=== PATIENT | male | born 1940 | race Native Hawaiian/Other Pacific Islander ===

== ENCOUNTER 2018-03-05 06:29 | Inpatient (IN) | payer MEDICARE ==
--- NOTE | 2018-03-05 07:16 | Emergency Department Report ---
HPI - General Chief Complaint: Dyspnea/Respdistress Time Seen by Provider: 03/05/18 06:58 - HPI HPI: Room 23 The patient is a 77-year-old male presented with the chief complaint of hypoxia. The patient has a history of end-stage renal disease and was last dialyzed 2 days ago. The patient reportedly was on his way to dialysis via EMS when he reportedly was found to be hypotensive with a blood pressure 90/62 and hypoxic with an SPO2 of 72%. Patient states she is normally on 3 L nasal cannula at home. MS decided to bring the patient to the ED after the above vitals were noticed. Patient denied ever having any complaints states he just feels very relaxed and sleeping. Patient denies pain of any type Location: [See above] Duration: Hypoxia Quality: Hypoxia Severity: 72% Modifying factors: [see above] Context: [see above] Mode of transportation: [not driving] ED Past Medical Hx - Past Medical History Previous Medical History?: Yes Hx Congestive Heart Failure: Yes Hx Renal Disease: Yes Hx COPD: Yes - Surgical History Past Surgical History?: Yes Additional Surgical History: Left BKA, left upper extremity fistula - Family History Family history: no significant - Social History Smoking Status: Former Smoker Substance Use Type: None - Medications Home Medications: Home Medications Medication Instructions Recorded Confirmed Last Taken Type AtorvaSTATin [Lipitor] 80 mg PO QHS 03/05/18 03/05/18 Unknown History Docusate Sodium [Colace] 100 mg PO QDAY PRN 03/05/18 03/05/18 Unknown History Gabapentin [Neurontin] 100 mg PO BID 03/05/18 03/05/18 Unknown History HYDROcodone/ACETAMINOPHEN 1 each PO Q4H 03/05/18 03/05/18 Unknown History [Hydrocodon-Acetaminophn 10-325] Midodrine [Proamatine] 10 mg PO 4XW 03/05/18 03/05/18 Unknown History Midodrine [Proamatine] 15 mg PO 3XW 03/05/18 03/05/18 Unknown History Pantoprazole [Protonix] 40 mg PO QDAY 03/05/18 03/05/18 Unknown History Warfarin Sodium [Coumadin] 7.5 mg PO QDAY 03/05/18 03/05/18 Unknown History traMADol [Ultram] 50 mg PO Q6HR PRN 03/05/18 03/05/18 Unknown History ED Review of Systems ROS: Stated complaint: RESP DISTRESS Other details as noted in HPI Eyes: denies: eye pain ENT: denies: dental pain Respiratory: denies: shortness of breath Cardiovascular: denies: chest pain Gastrointestinal: denies: abdominal pain Genitourinary: denies: dysuria Musculoskeletal: denies: back pain Neurological: denies: headache Physical Exam - Physical Exam Vital Signs: Vital Signs 03/05/18 06:41 Temperature 98.0 F Pulse Rate 71 Respiratory 18 Rate Blood Pressure 112/72 O2 Sat by Pulse 100 Oximetry Physical Exam: GENERAL: The patient is well-developed well-nourished male lying on stretcher not appearing to be in acute distress. [] HEENT: Normocephalic. Atraumatic. Extraocular motions are intact. Patient has moist mucous membranes. NECK: Supple. Trachea midline CHEST/LUNGS: Clear to auscultation. There is no respiratory distress noted. HEART/CARDIOVASCULAR: Regular. There is no tachycardia. There is no gallop rub or murmur. ABDOMEN: Abdomen is soft, nontender. Patient has normal bowel sounds. There is no abdominal distention. SKIN: There is no rash. There is no edema. There is no diaphoresis. NEURO: The patient is awake, alert, and oriented. The patient is cooperative. The patient has normal speech MUSCULOSKELETAL: There is no evidence of acute injury. ED Course Vital Signs 03/05/18 06:41 Temperature 98.0 F Pulse Rate 71 Respiratory 18 Rate Blood Pressure 112/72 O2 Sat by Pulse 100 Oximetry - Consultations Consultation #1: 03/05/18 08:20 Nephrology paged 03/05/18 08:[address] Pisano. We'll arrange for hemodialysis. ED Medical Decision Making - Lab Data Result diagrams: 03/05/18 07:18 03/05/18 07:18 Laboratory Tests 03/05/18 03/05/18 07:18 07:18 WBC 6.4 RBC 4.34 Hgb 12.2 Hct 39.1 MCV 90 MCH 28 MCHC 31 L RDW 18.3 H Plt Count 113 L Lymph % (Auto) 13.6 Divide % (Auto) 8.8 H Eos % (Auto) 3.1 Baso % (Auto) 1.1 Lymph # 0.9 L Divide # 0.6 Eos # 0.2 Baso # 0.1 Seg Neutrophils % 73.4 H Seg Neutrophils # 4.7 Sodium 140 Potassium 3.3 L Chloride 93.2 L Carbon Dioxide 38 H Anion Gap 12 BUN 11 Creatinine 2.8 H Estimated GFR 22 BUN/Creatinine Ratio 4 Glucose 155 H Calcium 8.2 L Total Bilirubin 0.60 AST 15 ALT 10 Alkaline Phosphatase 238 H Total Protein 6.1 L Albumin 2.7 L Albumin/Globulin Ratio 0.8 - EKG Data -: EKG Interpreted by Me - EKG Data When compared to previous EKG there are: previous EKG unavailable Interpretation: other (ventricularly paced rhythm) - Radiology Data Radiology results: image reviewed (chest x-ray) interpreted by me: Chest x-ray-CHF. No pneumothorax - Differential Diagnosis volume overload, CHF, Critical care attestation.: If time is entered above; I have spent that time in minutes in the direct care of this critically ill patient, excluding procedure time. ED Disposition Clinical Impression: End stage renal disease, Hypoxia, Volume overload Disposition: DC-09 OP ADMIT IP TO THIS HOSP Is pt being admited?: Yes Does the pt Need Aspirin: Yes Condition: Fair Time of Disposition: 08:29 (hospitalist notified (Dr Casarez))
[2018-03-05 07:43] LABS: Basophils # (Auto) 0.1 K/mm3 (0.0-0.1); Basophils % (Auto) 1.1 % (0.0-1.8); Eosinophils # (Auto) 0.2 K/mm3 (0.0-0.4); Eosinophils % (Auto) 3.1 % (0.0-4.3); Hematocrit 39.1 % (35.5-45.6); Hemoglobin 12.2 gm/dl (11.8-15.2); Lymphocytes # (Auto) 0.9 K/mm3 (1.2-5.4); Lymphocytes % (Auto) 13.6 % (13.4-35.0); Mean Corpuscular HGB Conc 31 % (32-34); Mean Corpuscular Hemoglobin 28 pg (28-32); Mean Corpuscular Volume 90 fl (84-94); Monocytes # (Auto) 0.6 K/mm3 (0.0-0.8); Monocytes % (Auto) 8.8 % (0.0-7.3); Platelet Count 113 K/mm3 (140-440); Red Blood Count 4.34 M/mm3 (3.65-5.03); Red Cell Distribution Width 18.3 % (13.2-15.2)
[2018-03-05 07:54] LABS: Albumin 2.7 g/dL (3.9-5); Calcium 8.2 mg/dL (8.4-10.2)
--- NOTE | 2018-03-05 09:29 | Consultation ---
History of Present Illness - Reason for Consult Consult date: 03/05/18 end stage renal disease - History of Present Illness patient with h/o ESRD on HD, last treatment was 2 days ago, he came to the ER today for worsening SOB and weakness, he was found to be hypoxic and hypotensive by EMS. according to the he was also having diarrhea for the 2 weeks. renal consult was requested for HD and ESRD management. Past History Past Medical History: diabetes, ESRD, hypertension Medications and Allergies Allergies Allergy/AdvReac Type Severity Reaction Status Date / Time No Known Allergies Allergy Unverified 03/05/18 06:50 Home Medications Medication Instructions Recorded Confirmed Last Taken Type AtorvaSTATin [Lipitor] 80 mg PO QHS 03/05/18 03/05/18 Unknown History Docusate Sodium [Colace] 100 mg PO QDAY PRN 03/05/18 03/05/18 Unknown History Gabapentin [Neurontin] 100 mg PO BID 03/05/18 03/05/18 Unknown History HYDROcodone/ACETAMINOPHEN 1 each PO Q4H 03/05/18 03/05/18 Unknown History [Hydrocodon-Acetaminophn 10-325] Midodrine [Proamatine] 10 mg PO 4XW 03/05/18 03/05/18 Unknown History Midodrine [Proamatine] 15 mg PO 3XW 03/05/18 03/05/18 Unknown History Pantoprazole [Protonix] 40 mg PO QDAY 03/05/18 03/05/18 Unknown History Warfarin Sodium [Coumadin] 7.5 mg PO QDAY 03/05/18 03/05/18 Unknown History traMADol [Ultram] 50 mg PO Q6HR PRN 03/05/18 03/05/18 Unknown History Exam - Vital Signs Vital signs: Vital Signs Temp Pulse Resp BP Pulse Ox 98.0 F 71 18 112/72 100 03/05/18 06:41 03/05/18 06:41 03/05/18 06:41 03/05/18 06:41 03/05/18 06:41 - General Appearance General appearance: well-developed, well-nourished, appears stated age EENT: ATNC, PERRL, mucous membranes moist Neck: Present: neck supple Respiratory: Rales, Decreased Breath Sounds Heart: tachycardia, S1S2 Gastrointestinal: Present: normoactive bowel sounds, obese. Absent: tenderness , distended Integumentary: no rash, warm and dry Neurologic: no focal deficit, no asterixis, alert and oriented x3 Musculoskeletal: Present: other (edema in all ext) Psychiatric: mood/affect appropriate, cooperative Results - Lab Results 03/05/18 07:18 03/05/18 07:18 Most recent lab results Calcium 8.2 mg/dL (8.4-10.2) L 03/05/18 07:18 Assessment and Plan hypoxic resp failure - on face mask - no CXR done yet - HD ordered with ultrafiltration for volume overload ESRD on HD - HD for clearance and volume removal via L AVF - will assess dialysis needs daily, possible another tx tomorrow - renally dose meds - strict I&O - daily weights Hypotension - on midodrine at home, will restart please call with questions, cell phone [phone]
[2018-03-05] MEDS: PROAMATINE PO SCH ×2 (14:17→22:04)
--- NOTE | 2018-03-05 15:31 | History and Physical Report ---
History of Present Illness Date of examination: 03/05/18 Date of admission: 03/05/18 08:28 Chief complaint: SOB History of present illness: Mr. Hernandez is 77 yo man from home with a history of PVD s/p left bka, peripheral neuropathy, severe OA of shoulders, chronic hypoxic respiratory failure due to end stage COPD on 3 liters of home o2, CHF, ppm, dlp, chronic hypotension related to ESRD on midodrine and hemodialysis every MWF who presents to [facility] ED with sudden onset of acute severe, constant ALVARADO without aggravating or relieving factors, without radiating pains. He was found to have a bp of 90/82, o2 72%, placed on 100% NRB mask in route to hemodialysis. His main compliant is 2 week history of diarrhea which started after his hospitalization at [facility] after open cholecystectomy December 2017. He eventually went to [facility] in [place], [place] then was discharged home recently. PMH: as hpi, also on Warfarin, reason unknown PSH: left bka, open cholecystectomy, left upper arm fistula SH: ex smoker, no alcohol or illegal drug use, at bedside FH: hypertension and ESRD ROS: Constitutional: denies: fever ENT: denies: throat or neck pain Respiratory: denies: cough,+ shortness of breath Cardiovascular: denies: chest pain Endocrine: denies unexplained weight loss or gain Gastrointestinal: denies: abdominal pain, nausea +diarrhea Genitourinary: denies: dysuria Rectal: denies no incontinence, no bleeding, no itching, no discharge Musculoskeletal: denies swelling, myaglia, muscle weakness Skin: denies: rash Neurological: denies: headache Hematological/Lymphatic: denies: easy bleeding or easy bruising Allergic/Immunologic: no urticaria, no allergic rhinitis, no anaphylaxis Psych: denies sadness or hopelessness, SI/HI Past History Past Medical History: diabetes, ESRD, hypertension Medications and Allergies Allergies Allergy/AdvReac Type Severity Reaction Status Date / Time No Known Allergies Allergy Unverified 03/05/18 06:50 Home Medications Medication Instructions Recorded Confirmed Last Taken Type AtorvaSTATin [Lipitor] 80 mg PO QHS 03/05/18 03/05/18 Unknown History Docusate Sodium [Colace] 100 mg PO QDAY PRN 03/05/18 03/05/18 Unknown History Gabapentin [Neurontin] 100 mg PO BID 03/05/18 03/05/18 Unknown History HYDROcodone/ACETAMINOPHEN 1 each PO Q4H 03/05/18 03/05/18 Unknown History [Hydrocodon-Acetaminophn 10-325] Midodrine [Proamatine] 10 mg PO 4XW 03/05/18 03/05/18 Unknown History Midodrine [Proamatine] 15 mg PO 3XW 03/05/18 03/05/18 Unknown History Pantoprazole [Protonix] 40 mg PO QDAY 03/05/18 03/05/18 Unknown History Warfarin Sodium [Coumadin] 7.5 mg PO QDAY 03/05/18 03/05/18 Unknown History traMADol [Ultram] 50 mg PO Q6HR PRN 03/05/18 03/05/18 Unknown History Active Meds: Active Medications Midodrine (Proamatine) 10 mg PO TID RITESH Last Admin: 03/05/18 14:17 Dose: 10 mg Exam - Physical Exam Narrative exam: GEN: WDWN, ill appearing moderate increase accessory muscles with convo dyspnea , Awake, Alert, Orientated x 3 HEENT: NCAT, EOMI, PERRL, OP Clear NECK: supple, no adenopathy, no thyromegaly, = JVD CVS/HEART: irregular, normal S1S2, pulses present bilaterally, ppm left cw CHEST/LUNGS: bilateral crackles Symmetrical chest expansion, good air entry bilaterally GI/Abdomen: soft, NTND, good bowel sounds, no guarding or rebound /Bladder: no suprapubic tenderness, no CVA or paraspinal tenderness EXT/Skin: trace pretibial edema MSK: LROM of bilateral shoulders Neuro: CN 2-12 grossly intact, no new focal deficits Psych: calm - Constitutional Vitals: Temp Pulse Resp BP Pulse Ox 97.5 F L 65 16 107/45 97 03/05/18 13:45 03/05/18 15:00 03/05/18 13:45 03/05/18 15:00 03/05/18 13:45 Results - Labs CBC & Chem 7: 03/05/18 07:18 03/05/18 07:18 Labs: Abnormal lab results 03/05/18 03/05/18 03/05/18 Range/Units 07:18 07:18 11:56 MCHC 31 L (32-34) % RDW 18.3 H (13.2-15.2) % Plt Count 113 L (140-440) K/mm3 Nash % (Auto) 8.8 H (0.0-7.3) % Lymph # 0.9 L (1.2-5.4) K/mm3 Seg Neutrophils % 73.4 H (40.0-70.0) % Potassium 3.3 L (3.6-5.0) mmol/L Chloride 93.2 L (98-107) mmol/L Carbon Dioxide 38 H (22-30) mmol/L Creatinine 2.8 H (0.8-1.5) mg/dL Glucose 155 H (75-100) mg/dL POC Glucose 123 H (70-105) Calcium 8.2 L (8.4-10.2) mg/dL Alkaline Phosphatase 238 H (35-129) units/L Total Protein 6.1 L (6.3-8.2) g/dL Albumin 2.7 L (3.9-5) g/dL Assessment and Plan Mr. Hernandez is 77 yo man from home with a history of PVD s/p left bka, peripheral neuropathy, severe OA of shoulders, chronic hypoxic respiratory failure due to end stage COPD on 3 liters of home o2, CHF, ppm, dlp, chronic hypotension related to ESRD on midodrine and hemodialysis every MWF who presents to [facility] ED with sudden onset of acute severe, constant ALVARADO without aggravating or relieving factors, without radiating pains. He was found to have a bp of 90/82, o2 72%, placed on 100% NRB mask in route to hemodialysis. His main compliant is 2 week history of diarrhea which started after his hospitalization at [facility] after open cholecystectomy December 2017. He eventually went to [facility] in [place], [place] then was discharged home recently. On Warfarin most likely due to Afib/Aflutter which the current EKG shows heart rate 66, afib/aflutter and ventricular paced CXR CHF, reviewed in PACU with Dr. Pagan because CXR did not cross over into [facility] -Acute on chronic combined heart failure: treat with dialysis, he doesn't make urine, consult Cardiology -ESRD needing hemodialysis, he has been on HD for 13 years -Acute on chronic hypoxic respiratory failure due to chf: treat with O2 and hemodialysis -Chronic hypotension: continue Midodrine -Thrombocytopenia: repeat cbc -Hypokalemia: replete and repeat -Diarrhea, chronic: consult GI, get c.diffe -Severe malnutrition: consult Chief Recordist -Afib/Aflutter: continue Warfarin, get INR -DVT prophylaxis: Warfarin
[2018-03-05] MEDS ORDERED: ZOFRAN IV PRN (15:39)
[2018-03-05] MEDS ORDERED: TYLENOL PO PRN (15:39)
[2018-03-05] MEDS ORDERED: K-DUR PO NR (15:43)
[2018-03-05] MEDS ORDERED: K-DUR PO ONE (15:43)
[2018-03-05 18:18] LABS: INR 2.59 (0.87-1.13)
[2018-03-05] MEDS ORDERED: NACL 0.9% 1000 ML 2,000 ML ONE (18:28)
[2018-03-05] MEDS: PROTONIX PO SCH (18:34)
[2018-03-05] MEDS: COUMADIN PO SCH (22:00)
[2018-03-05] MEDS: NEURONTIN PO SCH (22:00)
[2018-03-06] MEDS: PROAMATINE PO SCH ×2 (06:36→08:43)
[2018-03-06 08:29] LABS: Calcium 8.4 mg/dL (8.4-10.2)
[2018-03-06 08:40] LABS: Basophils # (Auto) 0.1 K/mm3 (0.0-0.1); Basophils % (Auto) 1.4 % (0.0-1.8); Eosinophils # (Auto) 0.2 K/mm3 (0.0-0.4); Eosinophils % (Auto) 3.3 % (0.0-4.3); Hemoglobin 12.6 gm/dl (11.8-15.2); Lymphocytes # (Auto) 1.2 K/mm3 (1.2-5.4); Lymphocytes % (Auto) 18.6 % (13.4-35.0); Mean Corpuscular HGB Conc 32 % (32-34); Mean Corpuscular Hemoglobin 29 pg (28-32); Mean Corpuscular Volume 90 fl (84-94); Monocytes # (Auto) 0.5 K/mm3 (0.0-0.8); Monocytes % (Auto) 8.4 % (0.0-7.3); Platelet Count 124 K/mm3 (140-440); Red Blood Count 4.34 M/mm3 (3.65-5.03)
--- NOTE | 2018-03-06 10:41 | Progress Note ---
Assessment and Plan hypoxic resp failure - on face mask - HD ordered with ultrafiltration for volume overload again today ESRD on HD - HD for clearance and volume removal via L AVF again today - will assess dialysis needs daily - renally dose meds - strict I&O - daily weights Hypotension - on midodrine at home, will restart Chronic diarrhea - GI consulted please call with questions, cell phone [phone] Subjective Date of service: 03/06/18 Principal diagnosis: shortness of breath Interval history: tolerated HD well, SOB improved, remains to feel weak Objective - Vital Signs Vital signs: Vital Signs - 12hr 03/05/18 03/06/18 03/06/18 23:27 03:40 06:00 Temperature 98.1 F 98.1 F Pulse Rate 69 64 66 Respiratory 18 18 Rate Blood Pressure 83/43 72/35 Blood Pressure [Right] O2 Sat by Pulse 98 90 Oximetry 03/06/18 06:31 Temperature Pulse Rate Respiratory Rate Blood Pressure Blood Pressure 83/41 [Right] O2 Sat by Pulse Oximetry - General Appearance General appearance: well-developed, well-nourished, appears stated age EENT: ATNC, PERRL, mucous membranes dry Neck: no JVD, no carotid bruit Respiratory: Present: Rales, Decreased Breath Sounds Cardiology: regular, S1S2 Gastrointestinal: normoactive bowel sounds, no tenderness, no distended, obese Integumentary: no rash, warm and dry Neurologic: no focal deficit, no asterixis, alert and oriented x3 Musculoskeletal: other (edema in upper ext) Psychiatric: mood/affect appropriate, cooperative - Lab 03/06/18 07:36 03/06/18 07:36 Most recent lab results Calcium 8.4 mg/dL (8.4-10.2) 03/06/18 07:36 Phosphorus 1.50 mg/dL (2.5-4.5) L 03/06/18 07:36
[2018-03-06] MEDS: NEURONTIN PO SCH ×2 (11:00→22:50)
[2018-03-06] MEDS: PROTONIX PO SCH (11:00)
--- NOTE | 2018-03-06 14:43 | Progress Note ---
Assessment and Plan Assessment and plan: Mr. Hernandez is 77 yo man from home with a history of PVD s/p left bka, peripheral neuropathy, severe OA of shoulders, chronic hypoxic respiratory failure due to end stage COPD on 3 liters of home o2, CHF, ppm, dlp, chronic hypotension related to ESRD on midodrine and hemodialysis every MWF who presents to [facility] ED with sudden onset of acute severe, constant ALVARADO without aggravating or relieving factors, without radiating pains. He was found to have a bp of 90/82, o2 72%, placed on 100% NRB mask in route to hemodialysis. His main compliant is 2 week history of diarrhea which started after his hospitalization at [facility] after open cholecystectomy December 2017. He eventually went to [facility] in [place], [place] then was discharged home recently. On Warfarin most likely due to Afib/Aflutter which the current EKG shows heart rate 66, afib/aflutter and ventricular paced CXR CHF, reviewed in PACU with Dr. Pagan because CXR did not cross over into [facility] -Acute on chronic combined heart failure: treat with dialysis, he doesn't make urine, consult Cardiology -ESRD needing hemodialysis, he has been on HD for 13 years -Acute on chronic hypoxic respiratory failure due to chf: treat with O2 and hemodialysis -Chronic hypotension: continue Midodrine -Thrombocytopenia: repeat cbc -Hypokalemia: replete and repeat -Diarrhea, chronic: consult GI, get c.diffe==>no as diarrhea has resolved without eating, d/w gi, will treat with Questran -Severe malnutrition: consult Hand Booked Folder And Stitcher -Afib/Aflutter: continue Warfarin, get INR -DVT prophylaxis: Warfarin once fluid balance improves, will d/c home. Hemodialysis today also if bp allows History Interval history: Patient was seen and examined. Follow-up on current diagnosis. Overnight uneventful. Patient denies any chest pain, shortness breath, nausea/vomiting or severe headaches. Imaging, nursing note, chart, labs and old chart reviewed. Discussed with patient. Hospitalist Physical - Physical exam Narrative exam: GEN: WDWN, ill appearing moderate increase accessory muscles with convo dyspnea , Awake, Alert, Orientated x 3 HEENT: NCAT, EOMI, PERRL, OP Clear NECK: supple, no adenopathy, no thyromegaly, = JVD CVS/HEART: irregular, normal S1S2, pulses present bilaterally, ppm left cw CHEST/LUNGS: bilateral crackles Symmetrical chest expansion, good air entry bilaterally GI/Abdomen: soft, NTND, good bowel sounds, no guarding or rebound /Bladder: no suprapubic tenderness, no CVA or paraspinal tenderness EXT/Skin: trace pretibial edema MSK: LROM of bilateral shoulders Neuro: CN 2-12 grossly intact, no new focal deficits Psych: calm - Constitutional Vitals: Temp Pulse Resp BP Pulse Ox 97.6 F 65 16 92/28 95 03/06/18 12:15 03/06/18 14:15 03/06/18 12:15 03/06/18 14:15 03/06/18 11:08 Results - Labs CBC & Chem 7: 03/06/18 07:36 03/06/18 07:36 Labs: Laboratory Last Values WBC 6.5 K/mm3 (4.5-11.0) 03/06/18 07:36 RBC 4.34 M/mm3 (3.65-5.03) 03/06/18 07:36 Hgb 12.6 gm/dl (11.8-15.2) 03/06/18 07:36 Hct 39.0 % (35.5-45.6) 03/06/18 07:36 MCV 90 fl (84-94) 03/06/18 07:36 MCH 29 pg (28-32) 03/06/18 07:36 MCHC 32 % (32-34) 03/06/18 07:36 RDW 19.0 % (13.2-15.2) H 03/06/18 07:36 Plt Count 124 K/mm3 (140-440) L 03/06/18 07:36 Lymph % (Auto) 18.6 % (13.4-35.0) 03/06/18 07:36 Kane % (Auto) 8.4 % (0.0-7.3) H 03/06/18 07:36 Eos % (Auto) 3.3 % (0.0-4.3) 03/06/18 07:36 Baso % (Auto) 1.4 % (0.0-1.8) 03/06/18 07:36 Lymph # 1.2 K/mm3 (1.2-5.4) 03/06/18 07:36 Kane # 0.5 K/mm3 (0.0-0.8) 03/06/18 07:36 Eos # 0.2 K/mm3 (0.0-0.4) 03/06/18 07:36 Baso # 0.1 K/mm3 (0.0-0.1) 03/06/18 07:36 Seg Neutrophils % 68.3 % (40.0-70.0) 03/06/18 07:36 Seg Neutrophils # 4.5 K/mm3 (1.8-7.7) 03/06/18 07:36 PT 29.5 Sec. (12.2-14.9) H 03/05/18 17:15 INR 2.59 (0.87-1.13) H 03/05/18 17:15 Sodium 138 mmol/L (137-145) 03/06/18 07:36 Potassium 3.9 mmol/L (3.6-5.0) 03/06/18 07:36 Chloride 97.9 mmol/L (98-107) L 03/06/18 07:36 Carbon Dioxide 33 mmol/L (22-30) H 03/06/18 07:36 Anion Gap 11 mmol/L 03/06/18 07:36 BUN 7 mg/dL (9-20) L 03/06/18 07:36 Creatinine 2.3 mg/dL (0.8-1.5) H 03/06/18 07:36 Estimated GFR 28 ml/min 03/06/18 07:36 BUN/Creatinine Ratio 3 % 03/06/18 07:36 Glucose 75 mg/dL (75-100) 03/06/18 07:36 POC Glucose 123 (70-105) H 03/05/18 11:56 Calcium 8.4 mg/dL (8.4-10.2) 03/06/18 07:36 Phosphorus 1.50 mg/dL (2.5-4.5) L 03/06/18 07:36 Total Bilirubin 0.60 mg/dL (0.1-1.2) 03/05/18 07:18 AST 15 units/L (5-40) 03/05/18 07:18 ALT 10 units/L (7-56) 03/05/18 07:18 Alkaline Phosphatase 238 units/L (35-129) H 03/05/18 07:18 Total Protein 6.1 g/dL (6.3-8.2) L 03/05/18 07:18 Albumin 2.7 g/dL (3.9-5) L 03/05/18 07:18 Albumin/Globulin Ratio 0.8 % 03/05/18 07:18
[2018-03-06] MEDS ORDERED: HEPARIN SUB-Q SCH (15:39)
[2018-03-06] MEDS ORDERED: NACL 0.9% 1000 ML 2,000 ML ONE (17:13)
[2018-03-06] MEDS: QUESTRAN PO SCH ×2 (17:55→22:50)
[2018-03-06] MEDS: COUMADIN PO SCH (17:55)
[2018-03-06 18:27] LABS: INR 2.79 (0.87-1.13)
[2018-03-07 09:18] LABS: INR 2.68 (0.87-1.13)
--- NOTE | 2018-03-07 09:20 | Consultation ---
History of Present Illness Consult date: 03/07/18 Consult reason: congestive heart failure, hypertension History of present illness: 77 year old male presented from dialysis center with a low blood pressure. states patient has had chronic diarrhea for the past few weeks but denies any fever or chills. His hypotension appears to be chronic as he has been on Midodrine. He denies any chest pains dizziness or syncope. Past History Past Medical History: diabetes, ESRD, hypertension Past Surgical History: No surgical history, cholecystectomy, Other (left arm AV fistula, left BKA) Social history: . denies: smoking, alcohol abuse, IV drug use Family history: no significant family history Medications and Allergies Allergies Allergy/AdvReac Type Severity Reaction Status Date / Time No Known Allergies Allergy Unverified 03/05/18 06:50 Home Medications Medication Instructions Recorded Confirmed Last Taken Type AtorvaSTATin [Lipitor] 80 mg PO QHS 03/05/18 03/05/18 Unknown History Docusate Sodium [Colace] 100 mg PO QDAY PRN 03/05/18 03/05/18 Unknown History Gabapentin [Neurontin] 100 mg PO BID 03/05/18 03/05/18 Unknown History HYDROcodone/ACETAMINOPHEN 1 each PO Q4H 03/05/18 03/05/18 Unknown History [Hydrocodon-Acetaminophn 10-325] Midodrine [Proamatine] 10 mg PO 4XW 03/05/18 03/05/18 Unknown History Midodrine [Proamatine] 15 mg PO 3XW 03/05/18 03/05/18 Unknown History Pantoprazole [Protonix] 40 mg PO QDAY 03/05/18 03/05/18 Unknown History Warfarin Sodium [Coumadin] 7.5 mg PO QDAY 03/05/18 03/05/18 Unknown History traMADol [Ultram] 50 mg PO Q6HR PRN 03/05/18 03/05/18 Unknown History Active Meds: Active Medications Acetaminophen (Tylenol) 650 mg PO Q6H PRN PRN Reason: Non Cardiac Pain or Temp>100.5 Atorvastatin Calcium (Lipitor) 80 mg PO QHS [facility] Last Admin: 03/06/18 22:50 Dose: 80 mg Cholestyramine Resin (Questran) 4 gm PO BID [facility] Last Admin: 03/06/18 22:50 Dose: 4 gm Gabapentin (Neurontin) 100 mg PO BID [facility] Last Admin: 03/06/18 22:50 Dose: 100 mg Midodrine (Proamatine) 10 mg PO QDAY [facility] Ondansetron HCl (Zofran) 4 mg IV Q4H PRN PRN Reason: Nausea And Vomiting Pantoprazole Sodium (Protonix) 40 mg PO QDAY [facility] Last Admin: 03/06/18 11:00 Dose: 40 mg Warfarin Sodium (Coumadin Pharmacy To Dose) 1 each PO PKCONSULT [facility]; Protocol Warfarin Sodium (Coumadin) 7.5 mg PO DAILY@1700 [facility] Last Admin: 03/06/18 17:55 Dose: 7.5 mg Review of Systems Constitutional: no weight loss, no weight gain, no weakness Ears, nose, mouth and throat: no ear pain, no ear discharge, no tinnitis, no dysphagia, no headache, no vertigo Cardiovascular: no chest pain, no orthopnea, no palpitations, no syncope, no shortness of breath Respiratory: no cough, no shortness of breath, no dyspnea on exertion, no sleep apnea Gastrointestinal: no abdominal pain, no nausea, no vomiting, no constipation, no melena, no hematochezia Genitourinary Male: no dysuria, no flank pain, no urinary frequency, no nocturia , no impotence Musculoskeletal: no neck stiffness, no morning stiffness, no muscle weakness Integumentary: no rash, no pruritis, no redness Neurological: no weakness, no parathesias, no headaches, no migraines, no convulsions Psychiatric: no memory loss, no hallucinations, no depression, no hopelessness Endocrine: no cold intolerance, no polyphagia, no excessive thirst, no polyuria , no nocturia Allergic/Immunologic: no urticaria, no allergic rhinitis, no wheezing Physical Examination Vital Signs Pulse Resp Pulse Ox 66 15 99 03/05/18 06:32 03/05/18 06:32 03/05/18 06:32 General appearance: no acute distress, well-nourished HEENT: Positive: PERRL, Normocephaly, Mucus Membranes Moist Neck: Positive: neck supple, trachea midline. Negative: JVD/HJR Cardiac: Positive: Reg Rate and Rhythm, S1/S2, S3, PMI, Laterally Displaced Lungs: Positive: clear to auscultation, No Wheeze, Rales, Rhonchi Neuro: Positive: Grossly Intact Abdomen: Positive: Unremarkable, Soft, Active Bowel Sounds Skin: Positive: Clear. Negative: Rash Extremities: Present: edema, Other (s/p BKA) Results 03/06/18 07:36 03/06/18 07:36 Coagulation 03/06/18 Range/Units 17:46 PT 31.3 H (12.2-14.9) Sec. INR 2.79 H (0.87-1.13) - EKG Interpretation EKG: sinus rhythm Assessment and Plan 1. Hypotension chronic patient is on B dual drain brought this is also for the excess abated by chronic diarrhea. 2. Chronic diarrhea 3. Chronic obstructive pulmonary disease 4. End-stage renal disease on hemodialysis 5. Peripheral vascular disease status post left BKA 6. Peripheral neuropathy. Plan. Patient is currently stable. 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 We will however continue Midodrine
[2018-03-07 09:35] LABS: Calcium 8.3 mg/dL (8.4-10.2)
[2018-03-07] MEDS: PROTONIX PO SCH (10:59)
[2018-03-07] MEDS: PROAMATINE PO SCH (10:59)
[2018-03-07] MEDS: QUESTRAN PO SCH ×2 (10:59→21:55)
[2018-03-07] MEDS: NEURONTIN PO SCH ×2 (10:59→21:54)
[2018-03-07] MEDS ORDERED: IMODIUM PO PRN (13:40)
--- NOTE | 2018-03-07 13:40 | Gastroenterology Progress Note ---
Assessment and Plan GI: pt s/p recent GB removal now with loose stool after eating - suspect post-sheldon diarrhea, r/o other etiologies - stool cx's pending - continue Questran bid - no plans to scope at this time - will follow Subjective Date of service: 03/07/18 Principal diagnosis: shortness of breath Interval history: - reports still some diarrhea Objective - Constitutional Vitals: Temp Pulse Resp BP Pulse Ox 97.9 F 67 20 96/46 97 03/07/18 11:15 03/07/18 11:15 03/07/18 11:15 03/07/18 11:15 03/07/18 11:15 General appearance: no acute distress - EENT Eyes: PERRL - Respiratory Respiratory: bilateral: CTA - Cardiovascular Rhythm: regular Heart Sounds: Present: S1 & S2 - Gastrointestinal General gastrointestinal: Present: soft, non-tender, non-distended - Labs CBC & Chem 7: 03/06/18 07:36 03/07/18 08:41 Labs: Laboratory Results - last 24 hr 03/06/18 03/06/18 03/06/18 13:04 17:14 17:46 PT 31.3 H INR 2.79 H Sodium Potassium Chloride Carbon Dioxide Anion Gap BUN Creatinine Estimated GFR BUN/Creatinine Ratio Glucose POC Glucose 134 H 128 H Calcium Phosphorus 03/07/18 03/07/18 03/07/18 08:41 08:41 11:22 PT 30.3 H INR 2.68 H Sodium 150 H D Potassium 4.3 Chloride 106.2 Carbon Dioxide 30 Anion Gap 18 BUN 6 L Creatinine 2.2 H Estimated GFR 29 BUN/Creatinine Ratio 3 Glucose 77 POC Glucose 111 H Calcium 8.3 L Phosphorus 1.20 L
--- NOTE | 2018-03-07 13:58 | Progress Note ---
Assessment and Plan Assessment and plan: Mr. Hernandez is 77 yo man from home with a history of PVD s/p left bka, peripheral neuropathy, severe OA of shoulders, chronic hypoxic respiratory failure due to end stage COPD on 3 liters of home o2, CHF, ppm, dlp, chronic hypotension related to ESRD on midodrine and hemodialysis every MWF who presents to [facility] ED with sudden onset of acute severe, constant ALVARADO without aggravating or relieving factors, without radiating pains. He was found to have a bp of 90/82, o2 72%, placed on 100% NRB mask in route to hemodialysis. His main compliant is 2 week history of diarrhea which started after his hospitalization at [facility] after open cholecystectomy December 2017. He eventually went to [facility] in [place], [place] then was discharged home recently. On Warfarin most likely due to Afib/Aflutter which the current EKG shows heart rate 66, afib/aflutter and ventricular paced CXR CHF, reviewed in PACU with Dr. Pagan because CXR did not cross over into [employer] EMR -Acute on chronic combined heart failure: treat with dialysis, he doesn't make urine, consult Cardiology -ESRD needing hemodialysis, he has been on HD for 13 years -Acute on chronic hypoxic respiratory failure due to chf: treat with O2 and hemodialysis -Chronic hypotension: continue Midodrine -Thrombocytopenia: repeat cbc -Hypokalemia: replete and repeat -Diarrhea, chronic: consult GI, get c.diffe==>no as diarrhea has resolved without eating, d/w gi, will treat with Questran -Severe malnutrition: consult Soccer Commentator -Afib/Aflutter: continue Warfarin, get INR -Hypophosphatemia: replete with Kphos -Hypernatremia: more free water -DVT prophylaxis: Warfarin Diarrhea re-occurred after diet started. Check cdiff Anticipate d/c tomorrow after hemodialysis History Interval history: Patient was seen and examined. Follow-up on current diagnosis. Overnight uneventful. Patient denies any chest pain, shortness breath, nausea/vomiting or severe headaches. Imaging, nursing note, chart, labs and old chart reviewed. Discussed with patient. at bedside Hospitalist Physical - Physical exam Narrative exam: GEN: WDWN, ill appearing moderate increase accessory muscles with convo dyspnea , Awake, Alert, Orientated x 3 HEENT: NCAT, EOMI, PERRL, OP Clear NECK: supple, no adenopathy, no thyromegaly, = JVD CVS/HEART: irregular, normal S1S2, pulses present bilaterally, ppm left cw CHEST/LUNGS: bilateral crackles Symmetrical chest expansion, good air entry bilaterally GI/Abdomen: soft, NTND, good bowel sounds, no guarding or rebound /Bladder: no suprapubic tenderness, no CVA or paraspinal tenderness EXT/Skin: trace pretibial edema MSK: LROM of bilateral shoulders Neuro: CN 2-12 grossly intact, no new focal deficits Psych: calm - Constitutional Vitals: Temp Pulse Resp BP Pulse Ox 97.9 F 67 20 96/46 97 03/07/18 11:15 03/07/18 11:15 03/07/18 11:15 03/07/18 11:15 03/07/18 11:15 General appearance: Present: no acute distress, well-nourished Results - Labs CBC & Chem 7: 03/06/18 07:36 03/07/18 08:41 Labs: Laboratory Last Values WBC 6.5 K/mm3 (4.5-11.0) 03/06/18 07:36 RBC 4.34 M/mm3 (3.65-5.03) 03/06/18 07:36 Hgb 12.6 gm/dl (11.8-15.2) 03/06/18 07:36 Hct 39.0 % (35.5-45.6) 03/06/18 07:36 MCV 90 fl (84-94) 03/06/18 07:36 MCH 29 pg (28-32) 03/06/18 07:36 MCHC 32 % (32-34) 03/06/18 07:36 RDW 19.0 % (13.2-15.2) H 03/06/18 07:36 Plt Count 124 K/mm3 (140-440) L 03/06/18 07:36 Lymph % (Auto) 18.6 % (13.4-35.0) 03/06/18 07:36 Custer % (Auto) 8.4 % (0.0-7.3) H 03/06/18 07:36 Eos % (Auto) 3.3 % (0.0-4.3) 03/06/18 07:36 Baso % (Auto) 1.4 % (0.0-1.8) 03/06/18 07:36 Lymph # 1.2 K/mm3 (1.2-5.4) 03/06/18 07:36 Custer # 0.5 K/mm3 (0.0-0.8) 03/06/18 07:36 Eos # 0.2 K/mm3 (0.0-0.4) 03/06/18 07:36 Baso # 0.1 K/mm3 (0.0-0.1) 03/06/18 07:36 Seg Neutrophils % 68.3 % (40.0-70.0) 03/06/18 07:36 Seg Neutrophils # 4.5 K/mm3 (1.8-7.7) 03/06/18 07:36 PT 30.3 Sec. (12.2-14.9) H 03/07/18 08:41 INR 2.68 (0.87-1.13) H 03/07/18 08:41 Sodium 150 mmol/L (137-145) H D 03/07/18 08:41 Potassium 4.3 mmol/L (3.6-5.0) 03/07/18 08:41 Chloride 106.2 mmol/L (98-107) 03/07/18 08:41 Carbon Dioxide 30 mmol/L (22-30) 03/07/18 08:41 Anion Gap 18 mmol/L 03/07/18 08:41 BUN 6 mg/dL (9-20) L 03/07/18 08:41 Creatinine 2.2 mg/dL (0.8-1.5) H 03/07/18 08:41 Estimated GFR 29 ml/min 03/07/18 08:41 BUN/Creatinine Ratio 3 % 03/07/18 08:41 Glucose 77 mg/dL (75-100) 03/07/18 08:41 POC Glucose 111 (70-105) H 03/07/18 11:22 Calcium 8.3 mg/dL (8.4-10.2) L 03/07/18 08:41 Phosphorus 1.20 mg/dL (2.5-4.5) L 03/07/18 08:41 Total Bilirubin 0.60 mg/dL (0.1-1.2) 03/05/18 07:18 AST 15 units/L (5-40) 03/05/18 07:18 ALT 10 units/L (7-56) 03/05/18 07:18 Alkaline Phosphatase 238 units/L (35-129) H 03/05/18 07:18 Total Protein 6.1 g/dL (6.3-8.2) L 03/05/18 07:18 Albumin 2.7 g/dL (3.9-5) L 03/05/18 07:18 Albumin/Globulin Ratio 0.8 % 03/05/18 07:18
[2018-03-07] MEDS: K-PHOS NEUTRAL PO SCH ×3 (14:00→21:54)
--- NOTE | 2018-03-07 15:20 | Progress Note ---
Assessment and Plan hypoxic resp failure - on face mask - improving ESRD on HD - no indication for HD today - can be discharged from renal standpoint after HD tomorrow - will assess dialysis needs daily - renally dose meds - strict I&O - daily weights Hypotension - on midodrine at home, cont while inpatient Chronic diarrhea - GI consulted, no procedure planned please call with questions, cell phone [phone] Subjective Date of service: 03/07/18 Principal diagnosis: shortness of breath Interval history: breathing and swelling cont to improve Objective - Vital Signs Vital signs: Vital Signs - 12hr 03/07/18 03/07/18 03/07/18 04:33 06:00 08:01 Temperature 98.1 F 97.5 F L Pulse Rate 72 72 74 Respiratory 18 20 Rate Blood Pressure 112/49 117/50 O2 Sat by Pulse 95 96 Oximetry 03/07/18 11:15 Temperature 97.9 F Pulse Rate 67 Respiratory 20 Rate Blood Pressure 96/46 O2 Sat by Pulse 97 Oximetry - General Appearance General appearance: well-developed, well-nourished, appears stated age EENT: ATNC, PERRL, mucous membranes moist Neck: no JVD, no carotid bruit Respiratory: Present: Clear to Ascultation. Absent: Rales, Ronchi Cardiology: regular, S1S2 Gastrointestinal: normoactive bowel sounds, no tenderness, no distended, obese Integumentary: no rash, warm and dry Neurologic: no focal deficit, no asterixis, alert and oriented x3 Musculoskeletal: other (trace pitting edema in BUE) Psychiatric: mood/affect appropriate, cooperative - Lab 03/06/18 07:36 03/07/18 08:41 Most recent lab results Calcium 8.3 mg/dL (8.4-10.2) L 03/07/18 08:41 Phosphorus 1.20 mg/dL (2.5-4.5) L 03/07/18 08:41
[2018-03-07] MEDS: COUMADIN PO SCH (18:42)
[2018-03-08] MEDS ORDERED: ROBITUSSIN PO PRN (04:57)
--- NOTE | 2018-03-08 09:50 | Progress Note ---
Assessment and Plan 1. Chronic hypotension patient is on Midodrine 2. Chronic diarrhea 3. Chronic obstructive pulmonary disease 4. End-stage renal disease on hemodialysis 5. Peripheral vascular disease status post left BKA 6. Peripheral neuropathy. Plan. Patient is currently stable. 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 We will however continue Midodrine Subjective Date of service: 03/08/18 Principal diagnosis: shortness of breath Interval history: No cardiac symptoms. Objective Vital Signs Temp Pulse Resp BP BP Pulse Ox 03/08/18 07:17 98.0 F 69 20 105/46 98 03/08/18 05:40 97.6 F 84 20 110/64 92 03/08/18 01:41 98.9 F 80 20 107/60 93 03/08/18 00:26 73 107/60 94 03/07/18 23:00 64 03/07/18 22:00 18 03/07/18 20:13 97.8 F 64 18 98/42 93 03/07/18 19:27 64 98/42 93 03/07/18 15:32 97.9 F 68 18 105/46 100 03/07/18 11:15 97.9 F 67 20 96/46 97 - Physical Examination General: Appears Well, No Apparent Distress HEENT: Positive: PERRL, Normocephaly, Mucus Membranes Moist Neck: Positive: neck supple, trachea midline. Negative: JVD/HJR Cardiac: Positive: Regular Rate, PMI, Laterally Displaced. Negative: S3, S4 Lungs: Positive: clear to auscultation, Normal Breath Sounds Neuro: Positive: Grossly Intact Abdomen: Positive: Unremarkable, Soft, Active Bowel Sounds Skin: Positive: Clear. Negative: Rash Extremities: Present: edema, Other (s/p BKA) - Telemetry EKG Rhythm: Sinus Rhythm - EKG Sinus rhythms and dysrhythmias: sinus rhythm
--- NOTE | 2018-03-08 11:39 | Gastroenterology Progress Note ---
Assessment and Plan GI: pt s/p recent sheldon now with diarrhea - diarrhea now improved on Questran bid and Imodium prn - no plans for scope or other GI interventions at this time - will sign off, call if situation changes Subjective Date of service: 03/08/18 Principal diagnosis: shortness of breath Interval history: - no diarrhea overnight per staff. Denies GI complaints. Objective - Constitutional Vitals: Temp Pulse Resp BP Pulse Ox 97.7 F 65 18 91/34 98 03/08/18 09:49 03/08/18 10:45 03/08/18 09:49 03/08/18 10:45 03/08/18 07:17 General appearance: no acute distress - EENT Eyes: PERRL - Respiratory Respiratory: bilateral: CTA - Cardiovascular Rhythm: regular Heart Sounds: Present: S1 & S2 - Gastrointestinal General gastrointestinal: Present: soft, non-tender, non-distended - Labs CBC & Chem 7: 03/06/18 07:36 03/07/18 08:41 Labs: Laboratory Results - last 24 hr 03/07/18 03/07/18 03/07/18 11:22 16:39 20:35 POC Glucose 111 H 100 117 H
--- NOTE | 2018-03-08 11:53 | Consultation ---
REFERRING PHYSICIAN: Bradley Hurt MD INDICATION: Diarrhea. HISTORY OF PRESENT ILLNESS: The patient is a 77-year-old male with a history of peripheral vascular disease, status post left BKA, peripheral neuropathy, osteoarthritis, COPD, CHF, end-stage renal disease, on dialysis, who is now being seen by GI for diarrhea. The patient presented and was admitted for weakness and shortness of breath. The patient had been having shortness of breath at home. The patient is status post laparoscopic cholecystectomy approximately a month ago at [facility]. The patient reports that over the last 3 weeks or so, having loose stools after eating. Reports prior to that, they have not been having any problem. He denies any other specific GI complaints including rectal bleeding, nausea, or vomiting. Denies any specific complaints. PAST MEDICAL HISTORY: 1. Peripheral vascular disease. 2. Osteoarthritis. 3. End-stage renal disease, on dialysis. 4. CHF. 5. COPD. PAST SURGICAL HISTORY: Status post left BKA, cholecystectomy, left upper arm fistula. MEDICATIONS: See chart. ALLERGIES: No known drug allergies. SOCIAL HISTORY: Denies alcohol or tobacco. FAMILY HISTORY: Negative for colon cancer. REVIEW OF SYSTEMS: GENERAL: Reports weakness. HEENT: No visual complaints or tinnitus. PULMONARY: No shortness of breath. CARDIAC: No chest pain. GASTROINTESTINAL: Reports loose stool. All points of 13-point review of systems otherwise negative. PHYSICAL EXAMINATION: VITAL SIGNS: Temperature of 97.6, pulse 64, respirations 16, blood pressure 103 /50. GENERAL: Fairly weak appearing male, in no acute distress. HEENT: Pupils equal, round and reactive. PULMONARY: Rhonchi. CARDIOVASCULAR: Regular rhythm. Normal S1, S2. ABDOMEN: Positive bowel sounds, soft. SKIN: No obvious rashes. Left BKA noted. LABORATORY DATA: Pertinent for white count of 6.5, hemoglobin and hematocrit of 12.6 and 39.0, platelet count of 124. INR of 2.59 with a PT of 29.5. Chem-7 : Sodium of 130, potassium 3.9, chloride 98, CO2 of 33, BUN and creatinine of 7 and 2.3. LFTs within normal limits. ASSESSMENT: A 77-year-old male with multiple medical problems and admitted for more heart and pulmonary-related issues, now with loose stool. The patient reports loose stools started about 3 weeks ago and the patient is status post cholecystectomy approximately a month ago. Possible post-cholecystectomy diarrhea. Management is noted below. PLAN: 1. Stool cultures including C. diff as ordered. 2. Ensure hydration. 3. Hold on antibiotics at this time, but we will consider based on progress. 4. We will start Questran 4 grams p.o. b.i.d. 5. No plans for colonoscopy or other invasive intervention at this time. 6. We will follow. [facility]
[2018-03-08] MEDS ORDERED: NACL 0.9% 1000 ML 2,000 ML ONE (12:22)
--- NOTE | 2018-03-08 12:58 | Discharge Summary ---
Providers - Providers Date of Admission: 03/05/18 08:28 Date of discharge: 03/08/18 Attending physician: SCOTT WEST 03/05/18 15:33 Consult to Physician [CONS] Routine Comment: Consulting Provider: BETO ROSAS Physician Instructions: Reason For Exam: CHF 03/05/18 15:41 Consult to Physician [CONS] Routine Comment: Consulting Provider: JEROME RAMSAY Physician Instructions: Reason For Exam: chronic diarrhea 03/05/18 15:43 Consult to Dietitian/Nutrition [CONS] Routine Physician Instructions: Reason For Exam: Reason for Consult: Malnutrition Primary care physician: PRODUCTION MAINTENANCE MECHANIC Hospitalization Condition: Stable Hospital course: Mr. Hernandez is 77 yo man from home with a history of PVD s/p left bka, peripheral neuropathy, severe OA of shoulders, chronic hypoxic respiratory failure due to end stage COPD on 3 liters of home o2, CHF, ppm, dlp, chronic hypotension related to ESRD on midodrine and hemodialysis every MWF who [facility] with sudden onset of acute severe, constant ALVARADO without aggravating or relieving factors, without radiating pains. He was found to have a bp of 90/82, o2 72%, placed on 100% NRB mask in route to hemodialysis. His main compliant is 2 week history of diarrhea which started after his hospitalization at [facility] after open cholecystectomy December 2017. He eventually went to [facility] in [place], [place] then was discharged home recently. On Warfarin most likely due to Afib/Aflutter which the current EKG shows heart rate 66, afib/aflutter and ventricular paced CXR CHF, reviewed in PACU with Dr. Pagan because CXR did not cross over into [facility] EMR -Acute on chronic combined heart failure: treat with dialysis, he doesn't make urine, consult Cardiology -ESRD needing hemodialysis, he has been on HD for 13 years -Acute on chronic hypoxic respiratory failure due to chf: treat with O2 and hemodialysis -Chronic hypotension: continue Midodrine -Thrombocytopenia: repeat cbc -Hypokalemia: replete and repeat -Diarrhea, chronic: consult GI, get c.diffe==>no as diarrhea has resolved without eating, d/w gi, will treat with Questran -Severe malnutrition: consult Revenue Research Analyst -Afib/Aflutter: continue Warfarin, get INR -Hypophosphatemia: replete with Kphos -Hypernatremia: more free water -DVT prophylaxis: Warfarin No diarrhea, so c.diff not sent, the stool is formed with initiation of Questran. D/c tomorrow after hemodialysis, he is refusing labwork or any other intervention Disposition: DC-01 TO HOME OR SELFCARE Time spent for discharge: 35 minutes Core Measure Documentation - Palliative Care Palliative Care/ Comfort Measures: Not Applicable - Core Measures Any of the following diagnoses?: heart failure - VTE Discharge Requirements Deep Vein Thrombosis/Pulmonary Embolism Present on Admission: No Has pt received <5 days of overlap therapy or INR<2.0: No Anticoagulant overlap therapy prescribed at discharge: No Contraindication No Overlap Therapy order at DC: Not Indicated - Heart Failure Discharge Requirements MARK/ARB for LVSD if EF <40%: No Reason for no MARK/ARB: Renal impairment Beta vandana at discharge: No Reason for no beta vandana on DC: Hypotension Exam - Physical Exam Narrative exam: GEN: WDWN, ill appearing moderate increase accessory muscles with convo dyspnea , Awake, Alert, Orientated x 3 HEENT: NCAT, EOMI, PERRL, OP Clear NECK: supple, no adenopathy, no thyromegaly, = JVD CVS/HEART: irregular, normal S1S2, pulses present bilaterally, ppm left cw CHEST/LUNGS: bilateral crackles Symmetrical chest expansion, good air entry bilaterally GI/Abdomen: soft, NTND, good bowel sounds, no guarding or rebound /Bladder: no suprapubic tenderness, no CVA or paraspinal tenderness EXT/Skin: trace pretibial edema MSK: LROM of bilateral shoulders Neuro: CN 2-12 grossly intact, no new focal deficits Psych: calm - Constitutional Vitals: Temp Pulse Resp BP Pulse Ox 97.7 F 66 18 82/36 98 03/08/18 09:49 03/08/18 11:45 03/08/18 09:49 03/08/18 11:45 03/08/18 07:17 Plan Activity: other (no strenous activity until cleared by Family Consumer Scientist) Diet: renal Follow up with: DEZ LLAMAS MD [Primary Care Provider] - 7 Days BETO ROSAS MD [Staff Physician] - 7 Days JEROME RAMSAY MD [Staff Physician] - 7 Days Forms: Warfarin Discharge Instruction Prescriptions: Cholestyramine (with Sugar) [Questran] 4 gm PO BID 31 Days #31 packet guaiFENesin [Robitussin] 200 mg PO Q4H PRN #30 oral.liqd PRN Reason: Cough HYDROcodone/ACETAMINOPHEN [Hydrocodon-Acetaminophn 10-325] 1 each PO Q4H PRN # 10 tablet PRN Reason: Pain , Severe (7-10) Loperamide [Imodium] 2 mg PO Q2H PRN #30 capsule PRN Reason: Diarrhea Midodrine [Proamatine] 10 mg PO QDAY #60 tablet
[2018-03-08] MEDS: QUESTRAN PO SCH (14:03)
[2018-03-08] MEDS: NEURONTIN PO SCH (14:03)
[2018-03-08] MEDS: PROAMATINE PO SCH (14:03)
[2018-03-08] MEDS: PROTONIX PO SCH (14:04)
[2018-03-08] MEDS: K-PHOS NEUTRAL PO SCH ×2 (14:04)
--- NOTE | 2018-03-08 15:23 | Progress Note ---
Assessment and Plan hypoxic resp failure - improving ESRD on HD - Hd today for clearance and volume removal - on discharge patient will cont HD as an outpatient every MWF - renally dose meds - strict I&O - daily weights Hypotension - on midodrine at home, cont while inpatient Chronic diarrhea - GI consulted, no procedure planned please call with questions, cell phone [phone] Subjective Date of service: 03/08/18 Principal diagnosis: shortness of breath Interval history: tolerated HD well today Objective - Vital Signs Vital signs: Vital Signs - 12hr 03/08/18 03/08/18 03/08/18 05:40 07:17 09:49 Temperature 97.6 F 98.0 F 97.7 F Pulse Rate 84 69 64 Respiratory 20 20 18 Rate Blood Pressure 105/46 106/52 Blood Pressure 110/64 [Right] O2 Sat by Pulse 92 98 Oximetry 03/08/18 03/08/18 03/08/18 10:06 10:15 10:30 Temperature Pulse Rate 66 67 67 Respiratory Rate Blood Pressure 111/48 108/52 99/43 Blood Pressure [Right] O2 Sat by Pulse Oximetry 03/08/18 03/08/18 03/08/18 10:45 11:00 11:15 Temperature Pulse Rate 65 65 67 Respiratory Rate Blood Pressure 91/34 83/47 88/38 Blood Pressure [Right] O2 Sat by Pulse Oximetry 03/08/18 03/08/18 11:30 11:45 Temperature Pulse Rate 66 66 Respiratory Rate Blood Pressure 80/30 82/36 Blood Pressure [Right] O2 Sat by Pulse Oximetry - General Appearance General appearance: well-developed, well-nourished EENT: ATNC, PERRL Neck: no JVD, no carotid bruit Respiratory: Present: Clear to Ascultation. Absent: Rales, Ronchi Cardiology: regular, S1S2 Gastrointestinal: normoactive bowel sounds, no tenderness, no distended Integumentary: no rash, warm and dry Neurologic: no focal deficit, no asterixis, alert and oriented x3 Musculoskeletal: deferred Psychiatric: mood/affect appropriate, cooperative - Lab 03/06/18 07:36 03/07/18 08:41 Most recent lab results Calcium 8.3 mg/dL (8.4-10.2) L 03/07/18 08:41 Phosphorus 1.20 mg/dL (2.5-4.5) L 03/07/18 08:41
[2018-03-08 17:07] VITALS: BP 98/42
== END 2018-03-08 16:11 | disposition home or self-care (01) | DRG 291 ==
LOC: ED 06:29 → 4A 08:28
PROVIDERS: ADMIT Internal Medicine; ATTEND Internal Medicine
PROC: 5A1D70Z Performance of Urinary Filtration, Intermittent, Less than 6 Hours Per Day (ICD-10-PCS; principal; 2018-03-05)
PROC: 5A1D70Z Performance of Urinary Filtration, Intermittent, Less than 6 Hours Per Day (ICD-10-PCS; 2018-03-06)
PROC: 5A1D70Z Performance of Urinary Filtration, Intermittent, Less than 6 Hours Per Day (ICD-10-PCS; 2018-03-08)
DX: I13.2 Hypertensive heart and chronic kidney disease with heart failure and with stage 5 chronic kidney disease, or end stage renal disease (principal); I50.43 Acute on chronic combined systolic (congestive) and diastolic (congestive) heart failure; J96.21 Acute and chronic respiratory failure with hypoxia; E43 Unspecified severe protein-calorie malnutrition; N18.6 End stage renal disease; Z68.41 Body mass index [BMI] 40.0-44.9, adult; I48.92 Unspecified atrial flutter; E87.0 Hyperosmolality and hypernatremia; M19.019 Primary osteoarthritis, unspecified shoulder; J44.9 Chronic obstructive pulmonary disease, unspecified; I95.9 Hypotension, unspecified; D69.6 Thrombocytopenia, unspecified; E87.6 Hypokalemia; I48.91 Unspecified atrial fibrillation; E11.42 Type 2 diabetes mellitus with diabetic polyneuropathy; E83.39 Other disorders of phosphorus metabolism; E11.22 Type 2 diabetes mellitus with diabetic chronic kidney disease; E11.51 Type 2 diabetes mellitus with diabetic peripheral angiopathy without gangrene; Z99.2 Dependence on renal dialysis; Z89.512 Acquired absence of left leg below knee; Z99.81 Dependence on supplemental oxygen; Z90.49 Acquired absence of other specified parts of digestive tract; Z79.899 Other long term (current) drug therapy; Z82.49 Family history of ischemic heart disease and other diseases of the circulatory system
CPT/HCPCS: 36415; 71045; 80048; 80053; 82962; 84100; 85025; 85610; 93005; 93010; 99285; A9270-GY; J7030